=== PATIENT | female | born 1965 | race Asian ===

== ENCOUNTER 2021-12-24 00:42 | Inpatient (IN) | payer MEDICAID, OTHER ==
[~2021-12-24] VITALS: Ht 160 cm; Wt 60.9 kg
[2021-12-24] MEDS: ADENOSINE 6 MG/2 ML INJ IV ONE ×2 (01:05→01:28)
[2021-12-24] MEDS ORDERED: dilTIAZem 125mg/125ml BAG KIT 125 ML IV ONE (01:08)
[2021-12-24] MEDS ORDERED: dilTIAZem 25 MG/5 ML VIAL IV ONE ×2 (01:08→01:30)
[2021-12-24 01:21] LABS: Basophils # (auto) 0 10 ^3/uL (0-0.2); Basophils % (auto) 0.3 % (0.0-2.0); Eosinophils # (auto) 0 10 ^3/uL (0-0.8); Eosinophils % (auto) 0.1 % (0.0-7.0); Hemoglobin 13.7 g/dL (12.2-16.2); Lymphocytes # (auto) 2.1 10 ^3/uL (0.4-5.4); Lymphocytes % (auto) 31.5 % (10.0-50.0); Mean Corpuscular Hemoglobin 31.3 pg (28.0-32.0); Mean Corpuscular Hgb Conc. 34.1 g/dL (32.0-36.0); Mean Corpuscular Volume 91.9 fL (80.0-100.0); Monocytes # (auto) 0.4 10 ^3/uL (0-1.3); Monocytes % (auto) 5.3 % (0.0-12.0); Neutrophils # (auto) 4.2 10 ^3/uL (1.6-8.6); Neutrophils % (auto) 62.8 % (37.0-80.0); Nucleated Red Blood Cells % 0.1 %; Red Blood Cells 4.36 10^6/uL (4.0-5.20); Red Cell Distribution Width 13.2 % (11.8-14.3); White Blood Cell 6.7 10^3/uL (4.4-10.8)
[2021-12-24 01:30] LABS: Albumin 3.5 g/dL (3.4-5.0); Calcium 8.2 mg/dL (8.5-10.1); Magnesium 2.3 mg/dL (1.6-2.6)
[2021-12-24] MEDS ORDERED: ADENOSINE 6 MG/2 ML INJ IV ONE (01:30)
[2021-12-24] MEDS ORDERED: LORazepam 2MG/ML-1ML VIAL IV ONE (01:30)
[2021-12-24] MEDS ORDERED: ASPirin 81 mg TAB PO ONE (01:30)
[2021-12-24 01:33] LABS: Bilirubin, Total 0.5 mg/dL (0.2-1.0); Total Protein 6.9 g/dL (6.4-8.2)
[2021-12-24 02:04] LABS: Urine Bacteria NONE SEEN /hpf (None Seen); Urine Blood Negative /uL (Negative); Urine Specific Gravity 1.003 (1.001-1.035); Urine WBC 1 /hpf (0 - 5)
[2021-12-24] MEDS ORDERED: MORPHINE SULFATE INJECTION 2 MG/ML SYRG IV PRN (03:45)
[2021-12-24] MEDS ORDERED: TEMAZEPAM 15 MG CAP PO PRN (03:45)
[2021-12-24] MEDS ORDERED: NITROGLYCERIN 0.4 MG SL TAB SL PRN (03:45)
[2021-12-24] MEDS ORDERED: ONDANSETRON HCL 4 MG/2 ML VIAL IV PRN (03:45)
[2021-12-24 06:42] VITALS: BP 131/79
[2021-12-24 09:00] VITALS: BP 148/93
[2021-12-24] MEDS ORDERED: ENOXAPARIN SOD 40 MG/0.4 ML SYRINGE SC SCH (10:00)
[2021-12-24] MEDS ORDERED: ASPirin 81 mg TAB PO SCH (10:00)
[2021-12-24] MEDS: PANTOPRAZOLE 40 MG TAB PO SCH (10:45)
[2021-12-24] MEDS: METOPROLOL TARTRATE 25 MG TAB PO SCH ×2 (10:59→21:10)
[2021-12-24 13:00] VITALS: BP 127/80
[2021-12-24 17:00] VITALS: BP 140/83
[2021-12-24 19:30] VITALS: BP 119/62
[2021-12-24 22:00] VITALS: BP 119/62
[2021-12-24] MEDS ORDERED: ATORVASTATIN 20 MG TAB PO SCH (22:00)
[2021-12-24] MEDS ORDERED: RIVAROXABAN 20 MG TAB PO ONE (22:30)
[2021-12-25 05:30] VITALS: BP 114/71
[2021-12-25 05:49] LABS: Basophils # (auto) 0 10 ^3/uL (0-0.2); Basophils % (auto) 0.3 % (0.0-2.0); Eosinophils # (auto) 0 10 ^3/uL (0-0.8); Eosinophils % (auto) 0.6 % (0.0-7.0); Hematocrit 35.5 % (36.0-46.0); Hemoglobin 12.2 g/dL (12.2-16.2); Lymphocytes # (auto) 1.9 10 ^3/uL (0.4-5.4); Lymphocytes % (auto) 34.3 % (10.0-50.0); Mean Corpuscular Hemoglobin 31.6 pg (28.0-32.0); Mean Corpuscular Hgb Conc. 34.3 g/dL (32.0-36.0); Monocytes # (auto) 0.3 10 ^3/uL (0-1.3); Monocytes % (auto) 5.5 % (0.0-12.0); Neutrophils # (auto) 3.3 10 ^3/uL (1.6-8.6); Neutrophils % (auto) 59.3 % (37.0-80.0); Nucleated Red Blood Cells % 0.1 %; Red Blood Cells 3.86 10^6/uL (4.0-5.20); Red Cell Distribution Width 13.1 % (11.8-14.3); White Blood Cell 5.6 10^3/uL (4.4-10.8)
[2021-12-25 06:05] LABS: Albumin 2.8 g/dL (3.4-5.0); Calcium 8.2 mg/dL (8.5-10.1); Potassium 3.9 mmol/L (3.5-5.1)
[2021-12-25 06:07] LABS: BUN/Creatinine Ratio 21.9
[2021-12-25 06:10] LABS: Bilirubin, Total 0.4 mg/dL (0.2-1.0); Total Protein 6.1 g/dL (6.4-8.2)
[2021-12-25 09:00] VITALS: BP 113/80
[2021-12-25] MEDS: PANTOPRAZOLE 40 MG TAB PO SCH (09:16)
[2021-12-25] MEDS: METOPROLOL TARTRATE 25 MG TAB PO SCH (09:19)
[2021-12-25] MEDS ORDERED: AMIODARONE HCL 200 MG TAB PO SCH (10:00)
[2021-12-25] MEDS ORDERED: METO25TA5 PO (10:59)
[2021-12-25] MEDS ORDERED: AMIO200T33 PO (10:59)
[2021-12-25] MEDS ORDERED: RIVA20TA PO (10:59)
[2021-12-25 13:00] VITALS: BP 120/69
[2021-12-25] MEDS ORDERED: RIVAROXABAN 20 MG TAB PO SCH (18:00)
[2021-12-27 13:11] LABS: Hepatitis B Surface Antibody Positive (Negative)
[2021-12-27 13:42] LABS: Hepatitis A Total Antibody Positive (Negative)
[2021-12-27 19:30] LABS: Hepatitis A Ab IgM Negative; Hepatitis B Core IgM Negative; Hepatitis C Antibody Negative (Negative)
[2021-12-27 20:14] LABS: Hepatitis C Antibody Negative (Negative)
== END 2021-12-25 14:03 | disposition home or self-care (01) | DRG 201 ==
LOC: ER 00:45 → TELE 03:33 → TELE-WESTW 05:16
PROVIDERS: ADMIT Nurse Practitioner; ATTEND Family Medicine
DX: I47.1 Supraventricular tachycardia (principal); I24.8 Other forms of acute ischemic heart disease; I05.0 Rheumatic mitral stenosis; I10 Essential (primary) hypertension; R73.9 Hyperglycemia, unspecified; R74.01 Elevation of levels of liver transaminase levels; Z20.822 Contact with and (suspected) exposure to COVID-19; Z79.01 Long term (current) use of anticoagulants; Z79.899 Other long term (current) drug therapy; Z91.19 Patient's noncompliance with other medical treatment and regimen
CPT/HCPCS: 36415; 71045; 76705; 80053; 80074; 81001; 82728; 83690; 83735; 83880; 84443; 84484; 85025; 86704; 86706; 86708; 86803; 87340; 93005; 93306; 96374; 96375; 99291; G0378; J0153

== ENCOUNTER 2021-12-26 03:48 | Emergency (ER) | payer MEDICAID ==
[~2021-12-26] VITALS: Ht 157.5 cm; Wt 61.7 kg
[~2021-12-26 03:48] MED LIST: AMIO200T33 PO; METO25TA5 PO; RIVA20TA PO
[2021-12-26 04:57] LABS: Basophils # (auto) 0 10 ^3/uL (0-0.2); Basophils % (auto) 0.5 % (0.0-2.0); Eosinophils # (auto) 0 10 ^3/uL (0-0.8); Eosinophils % (auto) 0.6 % (0.0-7.0); Hematocrit 38.6 % (36.0-46.0); Hemoglobin 13.3 g/dL (12.2-16.2); Lymphocytes # (auto) 2.2 10 ^3/uL (0.4-5.4); Lymphocytes % (auto) 36.2 % (10.0-50.0); Mean Corpuscular Hemoglobin 31.7 pg (28.0-32.0); Mean Corpuscular Hgb Conc. 34.5 g/dL (32.0-36.0); Mean Corpuscular Volume 91.6 fL (80.0-100.0); Monocytes # (auto) 0.4 10 ^3/uL (0-1.3); Monocytes % (auto) 6.8 % (0.0-12.0); Neutrophils # (auto) 3.3 10 ^3/uL (1.6-8.6); Neutrophils % (auto) 55.9 % (37.0-80.0); Nucleated Red Blood Cells % 0.1 %; Red Blood Cells 4.21 10^6/uL (4.0-5.20); Red Cell Distribution Width 13.3 % (11.8-14.3)
[2021-12-26 05:25] LABS: Albumin 3.4 g/dL (3.4-5.0); Calcium 8.4 mg/dL (8.5-10.1)
[2021-12-26 05:27] LABS: BUN/Creatinine Ratio 16.7
[2021-12-26 05:30] LABS: Bilirubin, Total 0.3 mg/dL (0.2-1.0)
[2021-12-26 14:09] VITALS: BP 131/61
== END 2021-12-26 14:18 | disposition home or self-care (01) ==
LOC: ER 03:48
DX: M25.512 Pain in left shoulder (principal); M54.2 Cervicalgia; I10 Essential (primary) hypertension; R74.8 Abnormal levels of other serum enzymes; R77.8 Other specified abnormalities of plasma proteins
CPT/HCPCS: 36415; 71045; 80053; 84484; 85025; 93005

== ENCOUNTER 2022-06-06 09:28 | Emergency (ER) | payer SELFPAY ==
[~2022-06-06] VITALS: Ht 157.5 cm; Wt 58.2 kg
[2022-06-06 14:00] VITALS: BP 158/95
== END 2022-06-06 15:06 | disposition home or self-care (01) ==
LOC: ER 09:28
DX: I10 Essential (primary) hypertension (principal); I05.0 Rheumatic mitral stenosis; Z76.0 Encounter for issue of repeat prescription

== ENCOUNTER 2022-11-14 05:06 | Emergency (ER) | payer MEDICAID ==
[~2022-11-14] VITALS: Ht 157.5 cm; Wt 130.0 kg
[2022-11-14 06:20] VITALS: BP 165/94
[2022-11-14] MEDS ORDERED: LIDOCAINE 1% HCL (LOCAL ANESTH.) INJ 20ML MDV ID ONE (06:30)
[2022-11-14] MEDS ORDERED: CEPH-510 PO (07:15)
[2022-11-14] MEDS ORDERED: TETANUS-DIPTH-ACEL PERTUSSIS 0.5ML SYR Tdap IM ONE (07:15)
[2022-11-14] MEDS ORDERED: ACET-1158 PO (07:15)
== END 2022-11-14 07:25 | disposition home or self-care (01) ==
LOC: ER 05:06
DX: S71.012A Laceration without foreign body, left hip, initial encounter (principal); I10 Essential (primary) hypertension; W26.8XXA Contact with other sharp object(s), not elsewhere classified, initial encounter; Y93.89 Activity, other specified; Y92.89 Other specified places as the place of occurrence of the external cause; Y99.8 Other external cause status
CPT/HCPCS: 12002; 90471; 90715; 99283; J2001